=== PATIENT | female | born 1950 | race Hispanic/Latino ===

== ENCOUNTER 2017-08-25 22:10 | Emergency (ER) | payer MEDICARE, OTHER ==
--- NOTE | 2017-08-25 23:09 | CT ---
NONCONTRAST CT HEAD 08/25/17 HISTORY: Trauma. COMPARISON: None available. FINDINGS: There is no evidence of an acute cortical infarction, hemorrhage, mass effect, or midline shift. The re is suggestion of minimal low density areas in the periventricular white matter nonspecific but lik [place] reflective of mild chronic small vessel ischemic changes. The ventricular system is normal in siz e, shape and position. The visualized paranasal sinuses and mastoid air cells are clear. No calvaria l fracture is seen. IMPRESSION: No acute intracranial abnormality demonstrated. POS: [facility]
--- NOTE | 2017-08-25 23:26 | CT ---
NONCONTRAST CT CERVICAL SPINE 08/25/17 HISTORY: Trauma. TECHNIQUE: Contiguous axial CT images are obtained through the cervical spine from skull base to the T1-2 level. Sagittal and coronal reformatted images are provided. There are multilevel degenerative changes including facet hypertrophic changes. There is no fracture or subluxation seen involving the cervical spine. The prevertebral soft tissues are within normal olsen its. Lung apices are clear aside from minimal biapical pleural and parenchymal scarring. Calcifications se en in the left lobe of the thyroid gland. IMPRESSION: Multilevel degenerative changes in the cervical spine, but no fracture or subluxation is identified. POS: [facility]
== END 2017-08-25 23:32 | disposition home or self-care (01) ==
LOC: ERS 22:10
DX: S16.1XXA Strain of muscle, fascia and tendon at neck level, initial encounter (principal); I10 Essential (primary) hypertension; V89.2XXA Person injured in unspecified motor-vehicle accident, traffic, initial encounter
CPT/HCPCS: 70450; 72125